=== PATIENT | male | born 1955 ===

== ENCOUNTER 2021-10-27 06:17 | Day surgery (SDC) | payer OTHER ==
[~2021-10-27 06:17] MED LIST: ADULT LOW DOSE81 M1 PO; CARVEDILOL3.125 MG; COZAAR50 MG PO; FERRETTS325 MG PO; GLIPIZIDE-METF1 EAC2 PO; PILOCARPINE HC7.5 MG PO; TROSPIUM CHLORI20 MG PO; ZOCOR40 MG PO
[2021-10-27] MEDS ORDERED: KETO10TA2 PO (09:02)
[2021-10-27] MEDS ORDERED: PERCOCET 5-3251 EACH PO (09:02)
[2021-10-27] MEDS ORDERED: DERMOPLAST PAIN78 GM TOP (09:02)
[2021-10-27] MEDS ORDERED: NEURONTIN300 MG PO (09:02)
== END 2021-10-27 16:31 | disposition home or self-care (01) ==
LOC: CIR.AMB 06:17
PROVIDERS: ATTEND Surgery
DX: K64.4 Residual hemorrhoidal skin tags (principal); K64.8 Other hemorrhoids; K64.3 Fourth degree hemorrhoids; Z20.822 Contact with and (suspected) exposure to COVID-19

== ENCOUNTER 2022-06-16 12:15 | Inpatient (IN) | payer OTHER ==
[~2022-06-16 12:15] MED LIST changes: +DERMOPLAST PAIN78 GM TOP; +KETO10TA2 PO; +NEURONTIN300 MG PO; +PERCOCET 5-3251 EACH PO
[2022-06-16] MEDS ORDERED: DEXILANT60 MG PO (15:12)
[2022-06-16] MEDS ORDERED: MYRBETRIQ50 MG PO (15:13)
[2022-06-16] MEDS ORDERED: METAGLIP PO (15:14)
[2022-06-22] MEDS ORDERED: CLORAZEPATE DI7.5 MG (13:19)
[2022-06-22] MEDS ORDERED: NABUMETONE750 MG (13:19)
[2022-06-22] MEDS ORDERED: AMMONIUM LACTA385 GM (13:19)
[2022-06-22] MEDS ORDERED: FLUOXETINE HCL20 MG (13:19)
[2022-06-22] MEDS ORDERED: BACLOFEN10 MG (13:19)
[2022-06-22] MEDS ORDERED: MESALAMINE1000 MG (13:20)
[2022-06-22] MEDS ORDERED: BUSPIRONE HCL5 MG (13:20)
[2022-06-22] MEDS ORDERED: RISPERIDONE0.25 MG (13:20)
[2022-06-22] MEDS ORDERED: FLONASE16 GM (13:20)
[2022-06-22] MEDS ORDERED: TESTOSTERONE75 G1 (13:20)
[2022-06-22] MEDS ORDERED: BOTOX100 UNIT (13:20)
[2022-06-25] MEDS ORDERED: INTESTINEX680 M1 PO (11:38)
[2022-06-25] MEDS ORDERED: NEURONTIN300 MG PO (11:39)
[2022-06-25] MEDS ORDERED: ULTRAM50 MG PO (11:40)
== END 2022-06-25 13:44 | disposition home or self-care (01) | DRG 331 ==
LOC: SURG 06-22 07:00 → MEDJ 06-22 07:42 → O/R 06-22 07:42 → SURG 06-22 12:15 → MEDJ 06-22 20:07 → SEC-K 06-22 20:16 → MEDJ 06-22 20:17 → SURH 06-23 16:20
PROVIDERS: ADMIT Surgery; ATTEND Surgery
PROC: 0DBP4ZZ Excision of Rectum, Percutaneous Endoscopic Approach (ICD-10-PCS; 2022-06-22)
PROC: 07TB4ZZ Resection of Mesenteric Lymphatic, Percutaneous Endoscopic Approach (ICD-10-PCS; 2022-06-22)
PROC: 0DJD8ZZ Inspection of Lower Intestinal Tract, Via Natural or Artificial Opening Endoscopic (ICD-10-PCS; 2022-06-22)
PROC: 0DTN4ZZ Resection of Sigmoid Colon, Percutaneous Endoscopic Approach (ICD-10-PCS; principal; 2022-06-22 07:00)
DX: C20 Malignant neoplasm of rectum (principal); K64.2 Third degree hemorrhoids; D50.0 Iron deficiency anemia secondary to blood loss (chronic); K66.0 Peritoneal adhesions (postprocedural) (postinfection); Z20.822 Contact with and (suspected) exposure to COVID-19